=== PATIENT | female | born 1930 | race Caucasian/White ===

== ENCOUNTER 2016-05-11 09:56 | Outpatient (CLI) | payer OTHER, MEDICARE | END 2016-05-12 17:34 | disposition home or self-care (01) | LOC: SCA 09:56 | PROVIDERS: ATTEND Internal Medicine | DX: Z01.818 Encounter for other preprocedural examination (principal) | CPT/HCPCS: 93005 ==

== ENCOUNTER → 2016-10-02 | Outpatient (CLI) | payer OTHER, MEDICARE | END | disposition home or self-care (01) | LOC: SUS 07:49 | PROVIDERS: ATTEND Internal Medicine | DX: E04.2 Nontoxic multinodular goiter (principal) | CPT/HCPCS: 76536-TC ==

== ENCOUNTER 2018-01-02 12:40 | Outpatient (CLI) | payer OTHER, MEDICARE | END 2018-01-02 18:15 | disposition home or self-care (01) | LOC: SRD 12:40 | PROVIDERS: ATTEND Family Medicine | DX: M47.892 Other spondylosis, cervical region (principal); M41.82 Other forms of scoliosis, cervical region; I70.90 Unspecified atherosclerosis | CPT/HCPCS: 72040-TC ==

== ENCOUNTER 2018-05-07 12:01 | Outpatient (CLI) | payer OTHER, MEDICARE | END 2018-05-07 19:27 | disposition home or self-care (01) | LOC: SMI 12:01 | PROVIDERS: ATTEND Internal Medicine | DX: I69.819 Unspecified symptoms and signs involving cognitive functions following other cerebrovascular disease (principal); R90.82 White matter disease, unspecified | CPT/HCPCS: 70551 ==

== ENCOUNTER 2018-11-02 09:58 | Outpatient (CLI) | payer OTHER, MEDICARE | END 2018-11-03 13:44 | disposition home or self-care (01) | LOC: SCA 09:58 | PROVIDERS: ATTEND Internal Medicine | DX: I08.3 Combined rheumatic disorders of mitral, aortic and tricuspid valves (principal) | CPT/HCPCS: 93306 ==

== ENCOUNTER 2019-01-27 15:51 | Outpatient (CLI) | payer OTHER, MEDICARE ==
[2019-01-27 16:32] LABS: BASOPHILS % (AUTO) 0.8 % (0.0-2.0); EOSINOPHILS # (AUTO) 0.1 K/uL (0.0-0.4); HEMOGLOBIN 13.6 g/dL (12.0-16.0); LYMPHOCYTES # (AUTO) 1.4 K/uL (1.0-5.5); MEAN CORPUSCULAR HEMOGLOBIN 30 pg (27-31); MEAN CORPUSCULAR HGB CONC 33 % (32-36); MEAN CORPUSCULAR VOLUME 90 fL (79.0-98.0); MONOCYTES # (AUTO) 0.4 K/uL (0.0-1.0); MONOCYTES % (AUTO) 6.2 % (1.7-9.3); NEUTROPHILS # (AUTO) 4.3 K/uL (1.8-7.7); PLATELET COUNT (AUTO) 214 K/uL (130-430); RED BLOOD CELL COUNT(AUTO) 4.58 MIL/uL (4.2-6.2); RED CELL DISTRIBUTION WIDTH 13.8 % (9.0-15.0); WHITE BLOOD COUNT (AUTO) 6.2 K/uL (4.8-10.8)
[2019-01-27 16:49] LABS: ALANINE AMINOTRANSFERASE 14 U/L (12-78); ALBUMIN 3.5 g/dL (3.4-4.8); ANION GAP 8 (5-15); ASPARTATE AMINOTRANSFERASE 22 U/L (10-37); CALCIUM 8.4 mg/dL (8.4-11.0); CHLORIDE 103 mmol/L (98-107); CREATININE 1.06 mg/dL (0.55-1.30); GLUCOSE 101 mg/dL (70-99); POTASSIUM 3.3 mmol/L (3.5-5.1); SODIUM SERUM 135 mmol/L (136-145); TOTAL BILIRUBIN 1.2 mg/dL (0.0-1.0); UREA NITROGEN, BLOOD 15 mg/dL (8-21); URIC ACID 5.1 mg/dL (2.4-7.0)
[2019-01-27 16:57] LABS: BILIRUBIN,URINE NEGATIVE (NEGATIVE); BLOOD, URINE 1+ (NEGATIVE); CLARITY/URINE SL HAZY (CLEAR); COLOR,URINE YELLOW (YELLOW); GLUCOSE,URINE NEGATIVE (NEGATIVE); KETONES,URINE TRACE (NEGATIVE); LEUKOCYTE ESTERASE ,URINE 3+ (NEGATIVE); NITRITE, URINE POSITIVE (NEGATIVE); PROTEIN URINE NEGATIVE (NEGATIVE); UROBILINOGEN,URINE 0.2 (0.2-1.0)
[2019-01-27 17:20] LABS: WBC,URINE 50-80 /HPF (0-3)
[2019-01-27 17:21] LABS: BACTERIA,URINE MANY /HPF (None Seen)
[2019-01-27 17:23] LABS: MUCUS,URINE None Seen /LPF (None Seen)
== END 2019-01-27 20:22 | disposition home or self-care (01) ==
LOC: SLB 15:51
PROVIDERS: ATTEND Internal Medicine
DX: N39.0 Urinary tract infection, site not specified (principal); R27.0 Ataxia, unspecified; E55.9 Vitamin D deficiency, unspecified
CPT/HCPCS: 36415; 80053; 81000-TC; 82306; 82607; 84550-TC; 85025; 87086; 87186-TC

== ENCOUNTER 2019-02-08 14:57 | Emergency (ER) | payer OTHER, MEDICARE ==
[~2019-02-08] VITALS: Ht 160 cm; Wt 52.2 kg
[2019-02-08 15:00] VITALS: BP_SYST 166
[2019-02-08] MEDS ORDERED: DIPH-TET-PERTUS Vaccine 0.5 ML VIAL (ADACEL) I.M. ONE (15:30)
[2019-02-08 19:25] VITALS: BP_SYST 149
== END 2019-02-08 19:25 | disposition home or self-care (01) ==
LOC: SED 14:57
DX: S01.111A Laceration without foreign body of right eyelid and periocular area, initial encounter (principal); R51 Headache; Z88.2 Allergy status to sulfonamides; W01.0XXA Fall on same level from slipping, tripping and stumbling without subsequent striking against object, initial encounter; Y93.89 Activity, other specified; Y92.89 Other specified places as the place of occurrence of the external cause; Y99.8 Other external cause status
CPT/HCPCS: 70450-TC; 90715; 99284

== ENCOUNTER 2019-02-19 12:45 | Outpatient (CLI) | payer OTHER, MEDICARE | END 2019-02-20 20:22 | disposition home or self-care (01) | LOC: SRD 12:45 | PROVIDERS: ATTEND Internal Medicine | DX: M47.896 Other spondylosis, lumbar region (principal); M85.88 Other specified disorders of bone density and structure, other site; M51.36 Other intervertebral disc degeneration, lumbar region; M16.0 Bilateral primary osteoarthritis of hip | CPT/HCPCS: 72110; 72170-TC ==

== ENCOUNTER 2020-07-25 15:35 | Emergency (ER) | payer OTHER, MEDICARE ==
[~2020-07-25] VITALS: Ht 157.5 cm; Wt 55.8 kg
[2020-07-25 15:49] VITALS: BP_SYST 160
[2020-07-25 17:00] VITALS: BP_SYST 163
== END 2020-07-25 17:00 | disposition home or self-care (01) ==
LOC: SED 15:35
DX: S51.811A Laceration without foreign body of right forearm, initial encounter (principal); W18.39XA Other fall on same level, initial encounter; Y93.89 Activity, other specified; Y92.89 Other specified places as the place of occurrence of the external cause; Y99.8 Other external cause status
CPT/HCPCS: 99281

== ENCOUNTER 2021-10-02 09:46 | Outpatient (CLI) | payer OTHER, MEDICARE | END 2021-10-02 20:38 | disposition home or self-care (01) | LOC: SUS 09:46 | PROVIDERS: ATTEND Internal Medicine | DX: R79.89 Other specified abnormal findings of blood chemistry (principal); R10.9 Unspecified abdominal pain; Z90.49 Acquired absence of other specified parts of digestive tract | CPT/HCPCS: 76700-TC ==

== ENCOUNTER 2022-05-15 16:16 | Outpatient (CLI) | payer OTHER, MEDICARE ==
[2022-05-15 17:36] LABS: BASOPHILS # (AUTO) 0.1 K/uL (0.0-0.2); BASOPHILS % (AUTO) 0.7 % (0.0-2.0); EOSINOPHILS # (AUTO) 0.1 K/uL (0.0-0.4); EOSINOPHILS % (AUTO) 0.8 % (0.0-4.0); HEMATOCRIT 38.1 % (36-48); LYMPHOCYTES # (AUTO) 1.3 K/uL (1.0-5.5); LYMPHOCYTES % (AUTO) 17.4 % (20.5-51.5); MEAN CORPUSCULAR HEMOGLOBIN 30 pg (27-31); MEAN CORPUSCULAR HGB CONC 34 % (32-36); MEAN CORPUSCULAR VOLUME 89 fL (79.0-98.0); MONOCYTES # (AUTO) 0.4 K/uL (0.0-1.0); MONOCYTES % (AUTO) 4.9 % (1.7-9.3); NEUTROPHILS # (AUTO) 5.7 K/uL (1.8-7.7); NEUTROPHILS % (AUTO) 76.2 % (40.0-70.0); PLATELET COUNT (AUTO) 204 K/uL (130-430); RED BLOOD CELL COUNT(AUTO) 4.29 MIL/uL (4.2-6.2); RED CELL DISTRIBUTION WIDTH 14.1 % (9.0-15.0); WHITE BLOOD COUNT (AUTO) 7.4 K/uL (4.8-10.8)
[2022-05-15 17:38] LABS: BILIRUBIN,URINE NEGATIVE (NEGATIVE); CLARITY/URINE CLEAR (CLEAR); COLOR,URINE YELLOW (YELLOW); GLUCOSE,URINE NEGATIVE (NEGATIVE); KETONES,URINE NEGATIVE (NEGATIVE); LEUKOCYTE ESTERASE ,URINE 3+ (NEGATIVE); NITRITE, URINE NEGATIVE (NEGATIVE); PROTEIN URINE NEGATIVE (NEGATIVE); UROBILINOGEN,URINE 0.2 (0.2-1.0)
[2022-05-15 17:39] LABS: BLOOD, URINE TRACE (NEGATIVE)
[2022-05-15 17:56] LABS: ANION GAP 9 (5-15); CALCIUM 9.1 mg/dL (8.4-11.0); CHLORIDE 105 mmol/L (98-107); CREATININE 1.03 mg/dL (0.55-1.30); GLUCOSE 98 mg/dL (70-99); UREA NITROGEN, BLOOD 16 mg/dL (8-21)
[2022-05-15 18:00] LABS: ALBUMIN 3.7 g/dL (3.4-4.8); ASPARTATE AMINOTRANSFERASE 18 U/L (10-37); TOTAL BILIRUBIN 0.9 mg/dL (0.0-1.0)
[2022-05-15 18:19] LABS: BACTERIA,URINE MODERATE /HPF (None Seen); MUCUS,URINE 1+ /LPF (None Seen)
[2022-05-15 18:33] LABS: ALANINE AMINOTRANSFERASE 15 U/L (12-78)
== END 2022-05-15 19:05 | disposition home or self-care (01) ==
LOC: SGI 16:16
PROVIDERS: ATTEND Internal Medicine
DX: R55 Syncope and collapse (principal); N39.0 Urinary tract infection, site not specified
CPT/HCPCS: 36415; 80053; 81000; 85025; 87086